=== PATIENT | female | born 1975 | race Caucasian/White ===

== ENCOUNTER → 2017-10-21 | Day surgery (SDC) | payer OTHER, MEDICAID ==
[~2017-10-21] VITALS: Ht 160 cm; Wt 102.8 kg
[~2017-10-21] MED LIST: *morphine SULFATE 10 MG/ML PERIprocedure ONLY ONE; ACETAMINOPHEN 1000 MG/100 ML 100 ML IV ONE; APREPITANT 40 MG CAP ONE; AUGM875T3 PO; BENZ100 PO; BUPIVACAINE/EPINEPHRINE 0.5% PF 30 ML VIAL ONE; CHLORHEXIDINE GLUCONATE 2 % 1 PACK (2 CLOTHS) TOPICAL PRN; DEXAMETHASONE SOD PHOS 4 MG/ML VIAL IV ONE; DO NOT ADM ANY ANTICOAGULANT DRUGS PRN; FAMOTIDINE 20 MG/2 ML VIAL ONE; HUMIBIDDM PO; HYDR-3516 PO; KETOROLAC TROMETHAMINE 30 MG/ML (IVP) VIAL IV PUSH ONE; KETOROLAC TROMETHAMINE 60 MG/2 ML (IM) VIAL IM PRN; LACTATED RINGER'S 1000 ML INJ 2,000 ML IV ONE; LACTATED RINGER'S 1000 ML IV PRN; LIDOCAINE HCL 1% PF 5 ML SYRINGE OTHER ONE; MAPA500C PO; METO50TA PO; METOCLOPRAMIDE HCL 10 MG/2 ML VIAL ONE; METOPROLOL TARTRATE 25 MG TAB PO PRN; MIDAZOLAM HCL 2 MG/2 ML VIAL ONE; ONDANSETRON HCL 4 MG/2 ML VIAL IV ONE; ONDANSETRON HCL 4 MG/2 ML VIAL IV PUSH PRN; PHENYLEPH/NS 1000 MCG/10 ML SYR IV ONE; POVIDONE IODINE 5% (ANTISEPSIS KIT) 4 APPLICATIONS EACH NARE PRN; PROPOFOL 200 MG/20 ML AMP IV ONE; ROCURONIUM INJ 50 MG/5 ML SYRINGE IV PUSH ONE; SODIUM CHLORID 0.9% 500 ML IV PRN; SODIUM CHLORIDE 0.9% 20 ML VIAL IV ONE; SUCCINYLCHOLINE CHLORIDE 200 MG/10 ML VIAL IV ONE; SUGAMMADEX SODIUM 200 MG/2 ML VIAL IV PUSH ONE; TUMS500C CHEW; VENTAER INH; ceFAZolin 2 GM PREMIX 50 ML IV SCH; ePHEDrine/NS 25 MG/5 ML SYRINGE IV ONE; oxyCODONE/ACETAMINOPHEN 5 MG/325 MG TAB ONE; oxyCODONE/ACETAMINOPHEN 5 MG/325 MG TAB PO PRN
[2017-10-21 08:33] LABS: AUTOMATED NEUTROPHIL # 4.7 TH/MM3 (1.8-7.7); BASOPHIL % 0.5 % (0.0-2.0); EOSINOPHIL # 0.3 TH/MM3 (0-0.4); EOSINOPHIL % 3.9 % (0.0-4.0); HEMATOCRIT 43.5 % (35.0-46.0); HEMOGLOBIN 14.6 GM/DL (11.6-15.3); LYMPH % 30.5 % (9.0-44.0); LYMPHOCYTE # 2.5 TH/MM3 (1.0-4.8); MEAN CELL VOLUME 83.8 FL (80.0-100.0); MEAN CORPUSCULAR HEMOGLOBIN 28.2 PG (27.0-34.0); MEAN CORPUSCULAR HGB CONC 33.6 % (32.0-36.0); MONO % 6.7 % (0.0-8.0); MONOCYTE # 0.5 TH/MM3 (0-0.9); NEUT % 58.4 % (16.0-70.0); PLATELET COUNT 372 TH/MM3 (150-450); RED BLOOD COUNT 5.18 MIL/MM3 (4.00-5.30); RED CELL DISTRIBUTION WIDTH 14.9 % (11.6-17.2); WHITE BLOOD COUNT 8.1 TH/MM3 (4.0-11.0)
[2017-10-21 09:00] LABS: BICARBONATE 22.9 MEQ/L (21.0-32.0); BLOOD UREA NITROGEN 7 MG/DL (7-18); CALCIUM 9.4 MG/DL (8.5-10.1); CHLORIDE 102 MEQ/L (98-107); CREATININE 0.88 MG/DL (0.50-1.00); GLOMERULAR FILTRATION RATE 71 ML/MIN (>89); GLUCOSE,RANDOM 116 MG/DL (74-106); SODIUM (NA) 134 MEQ/L (136-145)
--- NOTE | 2017-10-21 09:03 | RADRPT ---
EXAM DATE/TIME: 10/21/2017 08:27 [place] COMPARISON: No previous studies available for comparison. INDICATIONS : Evaluate for pneumonia, pneumothorax, or communicable disease. Pre-op laparoscopy. MEDICAL HISTORY : None. SURGICAL HISTORY : None. ENCOUNTER: Initial ACUITY: 1 day PAIN SCORE: 0/10 LOCATION: Bilateral chest FINDINGS: A single view of the chest demonstrates the lungs to be symmetrically aerated without evidence of mas s, infiltrate or effusion. The cardiomediastinal contours are unremarkable. Osseous structures are intact. CONCLUSION: No acute disease. Mode Hernandez MD on October 21, 2017 at 9:01 Board Certified Radiologist. This report was verified electronically.
[2017-10-21 09:05] LABS: BACTERIA, URINE RARE /hpf; BILIRUBIN, URINE NEG (NEG); BLOOD, URINE LARGE (NEG); GLUCOSE,URINE NEG (NEG); HYALINE CAST, URINE 10 /lpf (RARE); KETONE, URINE NEG (NEG); NITRITE,URINE NEG (NEG); PH, URINE 6.5 (5.0-8.5); URINE COLOR RED (YELLW/STRAW); URINE LEUKOCYTE ESTERASE TRACE (NEG)
--- NOTE | 2017-10-21 11:44 | MP ---
cc: Vivi Bradford MD DATE OF OPERATION: 10/21/2017 PREOPERATIVE DIAGNOSIS: Pelvic pain, right adnexal mass. POSTOPERATIVE DIAGNOSIS: Pelvic pain, right adnexal mass with bilateral ovarian cysts. PROCEDURE: Examination under anesthesia, dilatation and curettage, laparoscopy, bilateral ovarian cystectomies. SURGEON: Dr. Bradford. ANESTHESIA: General endotracheal. FLUIDS: 1500 ccs of crystalloids. ESTIMATED BLOOD LOSS: 10 ccs. URINE OUTPUT: 200 mL clear yellow at the end of the procedure. FINDINGS: Bilateral simple appearing ovarian cysts were noted, approximately 3-4 cm each, evidence of previous tubal ligation was noted. The uterus was retroverted. PROCEDURES: The patient was taken to the operating room where general anesthesia was found to be adequate. She was then prepped and draped in the normal sterile fashion in the dorsal lithotomy position. A Bella catheter was inserted into the urinary bladder using sterile technique. A weighted speculum was placed in the vagina. A single-tooth tenaculum was applied to the anterior lip of the cervix. The cervix was gently dilated with Matt dilators. Sharp endocervical curettage was performed and the specimen sent to pathology. An endometrial curettage was performed and the specimen was sent to pathology. The tenaculum was then replaced with a suture on the anterior lip of the cervix. The medium VCare uterine manipulator was then placed into the uterus. The balloon was inflated. The cups were positioned. The speculum was removed. The gloves were changed. Attention was turned to the abdominal portion of the procedure. A 5 mm incision was made just above the umbilicus and a 5 mm trocar and camera were inserted into the abdominal cavity under direct visualization. The abdomen was insufflated with approximately 3-1/2 liters of CO2 gas. A 5 mm trocar was placed in the right lower quadrant and a 10/12 mm trocar placed in the left lower quadrant under direct visualization. The bilateral ovarian cysts were noted. These were removed with the Harmonic scalpel. There were 2 on each side, simple appearing. They were placed in an EndoCatch bag and removed through the left lower quadrant incision and sent to pathology. Hemostasis was noted. The pelvis was suctioned and irrigated. The remaining ovarian tissue was normal. The distal segments of the fallopian tubes were noted to be normal. The uterus was normal and retroverted. The cul-de-sac was free of any lesions. The appendix was not visible, presumably retrocecal. The Suture Ease suture passer was used to close the fascia and the peritoneum of the left lower quadrant incision with 0 Vicryl. The gas was allowed to escape. The trocars were removed. All the instruments were removed from the abdomen. The skin incisions were closed with 4-0 Monocryl. Steri-Strips were applied. The VCare was removed from the vagina. The suture was cut from the anterior lip of the cervix. The patient was awakened from anesthesia and transferred to the recovery room in stable condition. Pathology was endocervical curettage, endometrial curettage and bilateral ovarian cysts. MD HEBER Ott/TL , 11:21 AM , 11:43 AM
[2017-10-21 13:28] VITALS: BP 150/78; PULSE 97; RESP 18; TEMP 97.4; O2SAT 97
== END | disposition home or self-care (01) ==
LOC: HSDC 07:27
PROVIDERS: ATTEND Obstetrics & Gynecology
DX: N83.202 Unspecified ovarian cyst, left side (principal); N83.201 Unspecified ovarian cyst, right side; N85.4 Malposition of uterus; I10 Essential (primary) hypertension; Z98.51 Tubal ligation status
CPT/HCPCS: 00840; 58558; 58662; 71045; 80048; 81001; 84702; 85025; 86850; 86900; 86901; 87086; 88305; 88307; J0131; J0330; J1100; J1885; J2250; J2270; J2370; J2405; J2765; J3010; J7120; J8501; 88304